=== PATIENT | male | born 1970 | race American Indian/Alaskan Native ===

== ENCOUNTER 2017-12-31 06:27 | Day surgery (SDC) | payer BC ==
[2017-12-24 12:11] VITALS: BMI 26.9
[2017-12-31] MEDS ORDERED: Propofol 10 mg/ml Inj (20 ML) ONE (08:36)
[2017-12-31] MEDS ORDERED: Sodium Chloride 0.9% 1,000 ML IV SCH (09:30)
[2017-12-31 10:39] VITALS: BP 139/84; PULSE 64; RESP 16; TEMP 97.6; O2SAT 100
== END 2017-12-31 11:13 | disposition home or self-care (01) ==
LOC: ENDO 06:27
PROVIDERS: ATTEND Internal Medicine Gastroenterology
DX: Z12.11 Encounter for screening for malignant neoplasm of colon (principal); D12.5 Benign neoplasm of sigmoid colon; K64.1 Second degree hemorrhoids; K21.0 Gastro-esophageal reflux disease with esophagitis; K29.50 Unspecified chronic gastritis without bleeding; B96.81 Helicobacter pylori [H. pylori] as the cause of diseases classified elsewhere
CPT/HCPCS: 43239; 45385; 88305; 88312; 88342; J2001; J2704; J7040 ×2